=== PATIENT | male | born 1945 | race Caucasian/White ===

== ENCOUNTER 2016-07-02 17:10 | Emergency (ER) | payer OTHER ==
[~2016-07-02] VITALS: Ht 167.6 cm; Wt 88.5 kg
[~2016-07-02 17:10] MED LIST: ALDACTONE25 MG PO; ALEVE220 MG PO; ALIGN4 MG PO; ALLEGRA180 MG; ALLEGRA30 MG PO; AMARYL4 MG; AMARYL4 MG PO; AMLODIPINE BESYL5 MG PO; AMOXICILLIN 50500 MG PO; AUGMENTIN 875875 MG PO; BETASEPT946 ML SWISH&SPIT; CARBAMAZEPINE200 M5 PO; CELEXA10 MG; CENTRUM COMPLE1 EACH; CENTRUM MULTIV1 EACH PO; CENTRUM SILVER1 EAC2 PO; CLONAZEPAM; CLONAZEPAM 0.50.5 M1 PO; CORGARD20 M1 PO; COZAAR100 MG PO; DOXYCYCLINE 10100 M1 PO; DUONEB 2.5-0.5 M3 ML INH; ENALAPRIL MALEA20 MG PO; FISH OIL 1,2001 EAC4 PO; FLAGYL 250 MG250 MG PO; FLEXERIL PO; GENERLAC10 GM/15 M PO; GINGER ROOT550 MG PO; IRON325 PO; LANTUS; LANTUS SUBQ; LANTUS100 UNIT/M SUBQ; LASIX 40 MG TAB40 M1 PO; LASIX 40 MG TAB40 M2 PO; LEVOTHYROXIN0.025 MG PO; LOSARTAN POTAS100 MG; MILK THISTLE200 M1 PO; MILK THISTLE500 MG PO; MOBIC15 MG PO; MUCINEX TA600 MG/TA1; MUCINEX600 MG PO; NALTREXONE HCL50 MG; NAPROSYN500 MG PO; NORCO 5-325 TA1 EACH PO; NOVOLOG MI100 UNIT/2 SUBQ; NOVOLOG100 UNIT/1; NOVOLOG100 UNIT/1 SUBQ; NYSTATIN 1100000 U/M PO; PANTOPRAZOLE SO40 M1 PO; PAROEX473 ML PO; POTASSIUM20 PO; PREDNISONE 10 M10 MG PO; PROTONIX40 M2 PO; REMERON15 MG PO; REVIA 50 MG TAB50 MG PO; SERTRALINE HCL50 MG; SIMVASTATIN40 MG; SIMVASTATIN40 MG PO; SYMBICORT160 MCG/4.; SYMBICORT160 MCG/4. INH; THIAMINE HCL100 MG PO; TOPAMAX 100 MG100 MG PO; TOPAMAX100 MG PO; TOPIRAGEN25 MG; TOPIRAGEN25 MG PO; TRIAMTERENE-HC1 EAC1; TRIAMTERENE-HC1 EAC1 PO; TRINATE TABLET1 TAB PO; ULTRAM 50MG TAB50 MG PO; VASOTEC10 MG PO; VITAMIN B-1100 M1; VITAMIN B-1100 M1 PO; VITAMIN B-150 M1 PO; VITAMIN B1 PO; VITAMINC500 PO; XIFAXAN550 M1 PO; ZOLOFT 50 MG TA50 MG PO; ZOLOFT100 MG PO; ZYRTEC10 MG PO
[2016-07-02] MEDS ORDERED: ALENDRONATE SOD70 MG PO (17:23)
[2016-07-02] MEDS ORDERED: CARBAMAZEPINE200 M2 PO (17:24)
[2016-07-02] MEDS ORDERED: HYDROCODONE-APA1 TA1 PO (17:25)
[2016-07-02] MEDS ORDERED: MOBIC15 MG PO (17:25)
[2016-07-02] MEDS ORDERED: PROAIR HFA8.5 GM INH (17:27)
[2016-07-02] MEDS ORDERED: ZOCOR20 MG PO (17:28)
[2016-07-02] MEDS ORDERED: KEFLEX500 MG PO (17:29)
== END 2016-07-02 18:05 | disposition home or self-care (01) ==
LOC: ER 17:10
DX: L02.511 Cutaneous abscess of right hand (principal); I10 Essential (primary) hypertension; J45.909 Unspecified asthma, uncomplicated; E11.9 Type 2 diabetes mellitus without complications; M19.90 Unspecified osteoarthritis, unspecified site; F17.220 Nicotine dependence, chewing tobacco, uncomplicated; Z88.1 Allergy status to other antibiotic agents; Z88.8 Allergy status to other drugs, medicaments and biological substances; Z88.6 Allergy status to analgesic agent

== ENCOUNTER 2016-08-10 05:20 | Observation (INO) | payer OTHER ==
[~2016-08-10] VITALS: Ht 170.2 cm; Wt 88.5 kg
--- NOTE | ~2016-08-10 | S ---
[facility] [place] [place] [address] SURGICAL PATH RPT PROCEDURE Name: TONI SNOWDEN Room #: 548-I RC Colon#: [id number] Admission: 08/10/16 Date of : 41 Discharge: 08/11/16 Report #: [id number] Path Case #: [id number] PATHOLOGY REPORT COLLECTION DATE: 08/10/2016 RECEIVED DATE: 08/10/2016 SUBMITTING PHYS: Dr. Alison Chavis OTHER PHYS: Dr. Jacky Pascal ADDENDUM REPORT (Order Date: 08/31/2016 13:24) ADDENDUM COMMENT: This addendum is issued subsequent to receiving a telephone call from Dr. Alec Larry with a request of performing AFB special stains on the tissue. Two AFB stains are performed. AFB for atypical mycobacterium performed on block A1 - no definite organisms identified. AFB (Kinyoun) performed on block A1 - no definite organisms identified. The originally rendered diagnosis remains unchanged. (IUV:db; 08/31/2016) Professional services performed by [facility] at [facility] [address] [place] [address] Technical services performed by [facility] at [address] [place] [address], [address] [place] [address]. ELECTRONICALLY SIGNED BY: Jess Freeman M.D. DATE/TIME:08/31/2016 14:51 SPECIMEN(S) RECEIVED: A.Right 3rd metacarpal * * * * * * * * * * * * FINAL DIAGNOSIS: A. 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 - Bone with remodeling and repair. (IUV; 08/14/16) PATHOLOGIST: Jess Freeman M.D. REPORT ELECTRONICALLY SIGNED BY: Jess Freeman M.D. DATE/TIME: 08/14/2016 16:02 [facility] [place] [address] SURGICAL PATH RPT PROCEDURE Name: SPTONI Room #: 548-I RC Colon#: [id number] Admission: 08/10/16 Date of : 41 Discharge: 08/11/16 Report #: [id number] Path Case #: [id number] * * * * * * * * * * * * GROSS PATHOLOGY: The specimen is received in formalin labeled "Toni Snowden ., right third metacarpal tissue". Received is a segment of pale oscar bone measuring 1.4 x 1.2 x 0.3 cm in greatest dimensions. The specimen is submitted entirely in cassette A1, following decalcification. (CAA; 08/11/2016) CLINICAL HISTORY: Right hand tendinitis INITIAL CPT CODE(S): A; 73907, 45569, 55904, 68559 Professional services performed by [facility] at [facility] [employer] [address], [place] [address] Technical services performed by [facility] at [address] [place] [address], [address], [place] [address]. [facility] [address] [place] [address] PHONE: [phone] DIRECTOR: Burton Rhoades M.D. * * * END OF REPORT * * *
--- NOTE | ~2016-08-10 | EKG ---
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1945 Requested By: Alison Chavis Order Number: [id number] MD: Saul Costello Measurements Intervals [place] Rate: 82 P: -80 CT: 183 QRS: 44 QRSD: 167 T: -22 QT: 411 QTc: 480 Interpretive Statements Sinus or ectopic atrial rhythm Right bundle branch block Compared to ECG 06/15/2015 15:13:10 No significant change was found Electronically Signed On 08-10-2016 8:31:24 CDT by Saul Costello [email or web address] <ELECTRONICALLY SIGNED> By: Saul Costello MD, [facility] 08/10/16 0831 0649 Saul Costello MD, [facility] /EPI
[~2016-08-10 05:20] MED LIST changes: +ALENDRONATE SOD70 MG PO; +CARBAMAZEPINE200 M2 PO; +HYDROCODONE-APA1 TA1 PO; +KEFLEX500 MG PO; +PROAIR HFA8.5 GM INH; +ZOCOR20 MG PO
[2016-08-10 06:51] LABS: HEMATOCRIT 37.4 % (42.0-52.0); HEMOGLOBIN 12.7 gm/dL (14.0-18.0); MCH 29.1 pg (26.0-34.0); MCV 85.5 fL (80.0-100.0); RBC 4.38 mil/uL (4.50-6.00); RDW 14.2 % (10.5-14.5); WBC 9.3 thou/uL (4.0-11.0)
[2016-08-10 06:59] LABS: CALCIUM 8.6 mg/dL (8.5-10.1); POTASSIUM 3.6 mmol/L (3.5-5.1)
[2016-08-10 07:04] LABS: TOTAL BILIRUBIN 0.3 mg/dL (<0.1-1.0)
[2016-08-10 07:55] VITALS: BP 137/69
[2016-08-10 09:04] VITALS: BP 115/69
[2016-08-10 09:15] VITALS: BP 113/68
[2016-08-10 09:30] VITALS: BP 115/64
[2016-08-10 10:00] VITALS: BP 127/76
[2016-08-10 19:34] VITALS: BP 130/62
[2016-08-11 00:11] VITALS: BP 123/74
[2016-08-11 02:22] VITALS: BP 124/67
[2016-08-11 04:25] LABS: ABSOLUTE NEUTROPHILS 5.8 thou/uL (1.4-8.2); BASOPHILS 0.3 % (0.0-2.0); HEMATOCRIT 34.7 % (42.0-52.0); HEMOGLOBIN 11.7 gm/dL (14.0-18.0); LYMPHOCYTES 16.5 % (24.0-44.0); MCH 29.1 pg (26.0-34.0); MCHC 33.8 g/dL (28.0-37.0); MCV 86.2 fL (80.0-100.0); MONOCYTES 11.5 % (1.0-8.0); PLATELET COUNT 111 thou/uL (150-400); POLYS 69.7 % (36.0-66.0); RBC 4.03 mil/uL (4.50-6.00); WBC 8.4 thou/uL (4.0-11.0)
[2016-08-11 04:26] LABS: CALCIUM 8.2 mg/dL (8.5-10.1); CREATININE 0.9 mg/dL (0.7-1.3)
[2016-08-11 04:36] LABS: MANUAL DIFF NO
[2016-08-11 08:43] VITALS: BP 109/64
[2016-08-11 15:45] VITALS: BP 109/64
[2016-08-11 17:39] VITALS: BP 109/64
[2016-08-11] MEDS ORDERED: CEFAZOLIN 1GM VI1 G1 INJECTION (17:41)
[2016-08-11 17:45] VITALS: BP 109/64
== END 2016-08-11 12:00 | disposition home health service (06) ==
LOC: TBA 05:20 → OR 05:20 → TBA 05:21 → 5S 09:04 → OR 09:04 → 5S 08-11 12:00
PROVIDERS: Internal Medicine; Orthopaedic Surgery Hand Surgery
DX: L02.511 Cutaneous abscess of right hand (principal); J96.01 Acute respiratory failure with hypoxia; R41.82 Altered mental status, unspecified; K72.00 Acute and subacute hepatic failure without coma; E16.2 Hypoglycemia, unspecified; R53.1 Weakness; M26.609 Unspecified temporomandibular joint disorder, unspecified side; M86.8X4 Other osteomyelitis, hand
CPT/HCPCS: 27000; 50010; 50101; 50386; 50825; 56526; 57006; 57091; 62110; 62900; 70005

== ENCOUNTER → 2016-09-08 | Outpatient (CLI) | payer OTHER ==
[~2016-09-08] MED LIST changes: +CEFAZOLIN 1GM VI1 G1 INJECTION
[2016-09-08 15:31] LABS: ABSOLUTE NEUTROPHILS 5.9 thou/uL (1.4-8.2); BASOPHILS 0.8 % (0.0-2.0); EOSINOPHILS 3.1 % (0.0-3.0); HEMATOCRIT 37.7 % (42.0-52.0); HEMOGLOBIN 12.8 gm/dL (14.0-18.0); MCH 28.9 pg (26.0-34.0); MCHC 33.9 g/dL (28.0-37.0); MCV 85.2 fL (80.0-100.0); MONOCYTES 11.8 % (1.0-8.0); PLATELET COUNT 127 thou/uL (150-400); POLYS 70.3 % (36.0-66.0); RBC 4.42 mil/uL (4.50-6.00); RDW 14.5 % (10.5-14.5); WBC 8.5 thou/uL (4.0-11.0)
[2016-09-08 15:36] LABS: MANUAL DIFF NO
== END ==
LOC: LABMALL 14:41
PROVIDERS: Specialist
DX: M70.04 Crepitant synovitis (acute) (chronic), hand (principal); R06.02 Shortness of breath

== ENCOUNTER → 2017-06-04 | Outpatient (CLI) | payer OTHER ==
[~2017-06-04] MED LIST changes: +AZITHROMYCIN 6600 M1 PO; +BACTRIM DS TAB1 EACH PO; +ETHAMBUTOL HCL400 MG PO; +FORACORT INH; +KRILL OIL 1,001 EACH PO; +RIFADIN150 MG PO; +SYNTHROID25 MCG PO
--- NOTE | ~2017-06-04 | EKG ---
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 : 1945 Requested By: Curt Larry Order Number: [id number] MD: Saul Costello Measurements Intervals [place] Rate: 86 P: -17 VA: 232 QRS: 30 QRSD: 167 T: -17 QT: 429 QTc: 513 Interpretive Statements Sinus rhythm Prolonged VA interval Right bundle branch block Compared to ECG 08/10/2016 06:49:28 First degree AV block now present Ectopic atrial rhythm no longer present Electronically Signed On 06-05-2017 9:05:56 CDT by Saul Costello [email or web address] <ELECTRONICALLY SIGNED> By: Saul Costello MD, [facility] 06/05/17 0905 1617 1617 Saul Costello MD, [facility] /EPI
== END ==
LOC: CV 15:58
DX: Z01.818 Encounter for other preprocedural examination (principal)

== ENCOUNTER 2018-05-16 05:33 | Day surgery (SDC) | payer OTHER ==
[~2018-05-16] VITALS: Ht 167.6 cm; Wt 90.7 kg
--- NOTE | ~2018-05-16 | O ---
[facility] [place] [address] OPERATIVE REPORT Name: SILVINA SNOWDEN Room #: [facility]P [facility]..#: [id number] Admission: 05/16/18 ������������������ Attend Phys: Alison Chavis, Discharge: 05/16/18 ������������������ Date of : 41 Report #: [id number] THIS REPORT FOR: //name// CC: Jacky Chavis DATE OF SERVICE: 05/16/2018 PREOPERATIVE DIAGNOSIS: Left carpal tunnel syndrome. POSTOPERATIVE DIAGNOSIS: Left carpal tunnel syndrome. PROCEDURE PERFORMED: Left open carpal tunnel release. SURGEON: Alison Chavis M.D. ANESTHESIA: Local MAC anesthesia. ESTIMATED BLOOD LOSS: Minimal. TOURNIQUET TIME: 16 minutes. COMPLICATIONS: None. CONDITION: Stable. DISPOSITION: Recovery room. INDICATIONS: The patient is a 72-year-old male with the above-mentioned diagnosis. He elects for operative treatment. The risks, benefits, alternatives and complications were discussed including, but were not limited to infection, damage to vessels or nerves and incomplete relief of the symptoms. Informed consent was obtained. The correct extremity was identified and labeled by myself after verbal confirmation of the patient as well as visual confirmation and signed informed consent. DESCRIPTION OF PROCEDURE: The patient was brought back to the operating room and placed on the operating table in supine position. He received preoperative antibiotics. Tourniquet was placed over padding on the patient's left extremity. The left upper extremity was sterilely prepped and draped in the usual fashion. Final timeout was taken to verify correct patient, operative procedure and operative site, all concurred. After adequate sedation was achieved, approximately 8 mL of mixed 0.25 % Marcaine and 1% lidocaine was injected subcutaneously at the proposed incision site. After adequate anesthesia was obtained, the arm was elevated, exsanguinated and tourniquet inflated. The entire procedure was done with the aid of 3.[address] [address] OPERATIVE REPORT Name: SILVINA SNOWDEN REJI Room #: [facility]..#: [id number] Admission: 05/16/18 ������������������ Attend Phys: Alison Chavis, Discharge: 05/16/18 ������������������ Date of : 41 Report #: [id number] magnification. Next, a 3-cm longitudinal incision was made over the carpal tunnel in line with the ring and long finger web space. This eventually was extended proximally over an oblique angle to the distal wrist crease. This was done in order to facilitate visualization and complete release of the thick transverse carpal ligament. In the mid portion of the incision, the 15 blade was used to incise the very thick transverse carpal ligament. This extremely thick transverse carpal ligament was transected proximally from the antebrachial fascia and forearm all the way to the fat in the palm. The incision was ulnar to the course of the median nerve to decrease postoperative scarring. The nerve was evaluated and looked to be edematous, but otherwise was in good condition. After complete release of the transverse carpal ligament, a nice return of vascular pattern was noted. The wound was thoroughly irrigated. Skin was closed with 4-0 nylon suture. Wound was dressed with Adaptic and sterile gauze. He was placed in a bulky dressing. All fingers were pink with brisk capillary refill at the conclusion of the case after deflation of tourniquet. All sponge and needle counts were correct. The patient was transferred to the postoperative recovery room in stable condition. ��������������������������������������������� ���������������������������������������� By: ��������������������������������������������� 1317 1356 Alison Chavis MD /nt
[~2018-05-16 05:33] MED LIST changes: +ALDACTONE50 MG PO; +BACTROBAN15 GM TOP; +CATAPRES-TTS 20.2 MG TRANSDERM; +INDAPAMIDE2.5 MG PO; +TORSEMIDE10 MG PO
[2018-05-16 10:08] LABS: CALCIUM 9.9 mg/dL (8.5-10.1); CREATININE 1.1 mg/dL (0.7-1.3); POTASSIUM 4.3 mmol/L (3.5-5.1)
[2018-05-16 10:35] VITALS: BP 143/89
[2018-05-16 12:14] VITALS: BP 143/89
--- NOTE | 2018-05-17 15:13 | EKG ---
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 : 1945 Requested By: Alison Chavis Order Number: [id number] MD: Franklin Broderick Measurements Intervals [place] Rate: 84 P: -44 [place]: 222 QRS: 42 QRSD: 164 T: -46 QT: 407 QTc: 482 Interpretive Statements Sinus rhythm Prolonged [place] interval Right bundle branch block Nonspecific ST-T wave changes Compared to ECG 06/04/2017 16:17:59 Significant changes noted Electronically Signed On 05-17-2018 15:12:54 CDT by Franklin Broderick [email or web address] ��������������������������������������������� <ELECTRONICALLY SIGNED> ���������������������������������������� By: Franklin Broderick MD ��������������������������������������������� 05/17/18 1512 1005 1005 Franklin Broderick MD /EPI
== END 2018-05-16 13:22 | disposition home or self-care (01) ==
LOC: OR 05:33 → TBA 05:33 → OR 11:05
PROVIDERS: Orthopaedic Surgery Hand Surgery
DX: G56.02 Carpal tunnel syndrome, left upper limb (principal); Z87.891 Personal history of nicotine dependence; J43.8 Other emphysema; F32.9 Major depressive disorder, single episode, unspecified; F41.9 Anxiety disorder, unspecified; Z68.32 Body mass index [BMI] 32.0-32.9, adult; I10 Essential (primary) hypertension; E78.5 Hyperlipidemia, unspecified; K74.60 Unspecified cirrhosis of liver; K21.9 Gastro-esophageal reflux disease without esophagitis; E11.9 Type 2 diabetes mellitus without complications; M19.90 Unspecified osteoarthritis, unspecified site
CPT/HCPCS: 50010; 50101; 50386; 56526; 57006; 57091; 62110; 62850; 70005